=== PATIENT | male | born 1990 | race Caucasian/White ===

== ENCOUNTER 2017-06-12 17:15 | Emergency (ER) | payer OTHER ==
[~2017-06-12] VITALS: Ht 172.7 cm; Wt 94.0 kg
[2017-06-12 17:17] VITALS: TEMP 37.3; Ht 172.7 cm; Wt 94.0 kg
[2017-06-12] MEDS ORDERED: SODIUM CHLORIDE 0.9% 1000ML 1,000 ML IV STA ×2 (17:29→17:30)
[2017-06-12] MEDS ORDERED: CLOZ100T PO (17:37)
[2017-06-12] MEDS ORDERED: VENL-273 PO (17:42)
[2017-06-12] MEDS ORDERED: NALT50TA5 PO (17:42)
[2017-06-12 18:04] LABS: BASO % 0.1 %; BASO ABS # 0.01 K/uL (0-0.2); COMPLETE YES; EOS % 0.9 %; IG% 0.1 %; LYMPH % 30.1 %; MEAN CELL VOLUME 87.4 fL (80-100); MEAN CORPUSCULAR HEMOGLOBIN 30.5 pg (25-34); MEAN CORPUSCULAR HGB CONC 34.9 g/dl (32-36); MEAN PLATELET VOLUME 10.1 fL (7.4-10.4); MONO % 4.7 %; NEUT % 64.1 %; PLATELET COUNT 204 K/uL (130-400); RED BLOOD COUNT 4.69 M/uL (4.7-6.1); WHITE BLOOD COUNT 7.63 K/uL (4.8-10.8)
[2017-06-12 18:35] LABS: ALT/SGPT 23 U/L (12-78); AST/SGOT 24 U/L (15-37); BLOOD UREA NITROGEN 10 mg/dl (7-18); CALCIUM 8.9 mg/dl (8.5-10.1); CARBON DIOXIDE 27 mmol/L (21-32); CHLORIDE 109 mmol/L (98-107); CREATININE 0.77 mg/dl (0.60-1.40); GLUCOSE 92 mg/dl (70-99); POTASSIUM 3.6 mmol/L (3.5-5.1); SODIUM 141 mmol/L (136-145)
[2017-06-12 18:38] LABS: ALKALINE PHOSPHATASE 98 U/L (45-117)
[2017-06-12] MEDS ORDERED: DiphenhydrAMINE HCL 50 MG/ML VIAL IV STA (18:46)
--- NOTE | 2017-06-12 19:03 | DIAGNOSTIC IMAGING REPORT ---
HEAD CT NONCONTRAST CT DOSE: 537.48 mGy.cm HISTORY: ? Seizures TECHNIQUE: Multiaxial CT images of the head were performed without the use of intravenous contrast. Automated exposure control was utilized for this study. A dose lowering technique was utilized adhering to the principles of ALARA. Comparison: None. Findings: The paranasal sinuses and mastoid air cells are clear. The calvarium and skull base are intact. The ventricles and sulci are within normal limits. There is no mass, hematoma, midline shift, or acute infarct. Impression: No acute intracranial abnormality. If this is the patient's first reported seizure then consider follow-up nonemergent brain MRI for further evaluation. Electronically signed by: Judd Moreno M.D. 06/12/2017 7:02 PM Dictated Date/Time: 06/12/2017 6:59 PM
[2017-06-12 19:06] LABS: URINE APPEARANCE CLOUDY (CLEAR); URINE BILIRUBIN NEG (NEG); URINE COLOR YELLOW; URINE EPITHELIAL CELL AUTO 0-5 /lpf (0-5); URINE NITRITE NEG (NEG); URINE PH 7.5 (4.5-7.5); URINE SPECIFIC GRAVITY 1.012 (1.000-1.030); UROBILINOGEN NEG (NEG); ZZUR CULT IF INDIC CLEAN CATCH NO
[2017-06-12 19:10] LABS: MANUAL MICROSCOPIC REQUIRED? NO; REVIEW REQ? NO
[2017-06-12 19:55] VITALS: BP 142/87; PULSE 82; O2SAT 98
--- NOTE | 2017-06-12 22:11 | EMERGENCY ROOM VISIT NOTE ---
History Report prepared by Itz: Magdiel Dow Under the Supervision of: Dr. Sriram Avery D.O. First contact with patient: 17:19 Chief Complaint: ALLERGIC REACTION Stated Complaint: MEDICATION REACTION History of Present Illness The patient is a 27 year old male who presents to the Emergency Room with complaints of intermittent for the past week. The mother notes that the patient was put on Clozaril in February for his schizophrenia. The mother notes that the patient has intermittent of episodes that last around 30 seconds where he tenses up, his hands start twitching, his head twitches to one side, he gets bright red, he gets sweaty, and he grunts. The patient notes that he does not notice this. The mother states that she has seen it 10-12 times today, and they usually only last for a few seconds until his mother talks to him and he snaps out of it. She states that the patient is not confused when he goes back to baseline, though he is a little bit delayed. The patient states that he has a rash on his neck, thought he notes that it could be from shaving. The mother additionally states that the patient has a tremor. He is additionally taking Effexor and naltrexone, and he used to be on Seroquel and Trileptal Source of History: patient, parent Onset: a week ago Position: other (global) Quality: other (allergic reaction) Timing: intermittent Note: Associated symptoms: he tenses up, his hands start twitching, his head twitches to one side, he gets bright red, he gets sweaty, and he grunts Review of Systems See HPI for pertinent positives & negatives. A total of 10 systems reviewed and were otherwise negative. Past Medical & Surgical Medical Problems: (1) Schizophrenia Social History Marital Status: single Housing Status: lives with family Occupation Status: unemployed Current/Historical Medications Scheduled Clozapine (Clozaril), 400 MG PO HS Naltrexone Hcl (Naltrexone Hcl), 5 MG PO DAILY Venlafaxine Hcl (Venlafaxine Hcl Er), 75 MG PO DAILY Allergies Coded Allergies: No Known Allergies (Unverified , 06/12/17) Physical Exam Vital Signs Date Time Temp Pulse Resp B/P (MAP) Pulse Ox O2 Delivery O2 Flow Rate FiO2 06/12/17 19:55 82 142/87 98 06/12/17 19:04 85 141/90 98 Room Air 06/12/17 17:17 37.3 124 20 141/80 95 Room Air Physical Exam GENERAL: Sitting up in bed, alert, well appearing, well nourished, no distress, non-toxic EYE EXAM: normal conjunctiva. PERRL and EOM's intact. OROPHARYNX: no exudate, no erythema, lips, buccal mucosa, and tongue normal and mucous membranes are moist NECK: supple, no nuchal rigidity, no adenopathy, non-tender LUNGS: Clear to auscultation. Normal chest wall mechanics HEART: no murmurs, S1 normal and S2 normal ABDOMEN: abdomen soft, non-tender, normo-active bowel sounds, no masses, no rebound or guarding. BACK: Back is symmetrical on inspection and there is no deformity, no midline tenderness, no CVA tenderness. SKIN: no rashes and no bruising UPPER EXTREMITIES: upper extremities are grossly normal. LOWER EXTREMITIES: No clonus. Ambulating without difficulty. Patellar reflexes are 1/4 bilaterally. No pitting edema. NEURO EXAM: Normal sensorium, cranial nerves II-XII intact, normal speech, no weakness of arms, no weakness of legs. No drift. Finger to nose intact. Sensation intact. No clonus. Ambulating without difficulty. Medical Decision & Procedures ER Provider Diagnostic Interpretation: Radiology results as stated below per my review and the radiologist's interpretation: HEAD CT NONCONTRAST CT DOSE: 537.48 mGy.cm HISTORY: ? Seizures TECHNIQUE: Multiaxial CT images of the head were performed without the use of intravenous contrast. Automated exposure control was utilized for this study. A dose lowering technique was utilized adhering to the principles of ALARA. Comparison: None. Findings: The paranasal sinuses and mastoid air cells are clear. The calvarium and skull base are intact. The ventricles and sulci are within normal limits. There is no mass, hematoma, midline shift, or acute infarct. Impression: No acute intracranial abnormality. If this is the patient's first reported seizure then consider follow-up nonemergent brain MRI for further evaluation. Electronically signed by: Judd Moreno M.D. 06/12/2017 7:02 PM Dictated Date/Time: 06/12/2017 6:59 PM Laboratory Results 06/12/17 17:40 Red Blood Count 4.69, Mean Corpuscular Volume 87.4, Mean Corpuscular Hemoglobin 30.5, Mean Corpuscular Hemoglobin Concent 34.9, Mean Platelet Volume 10.1, Neutrophils (%) (Auto) 64.1, Lymphocytes (%) (Auto) 30.1, Monocytes (%) (Auto) 4.7, Eosinophils (%) (Auto) 0.9, Basophils (%) (Auto) 0.1, Neutrophils # (Auto) 4.88, Lymphocytes # (Auto) 2.30, Monocytes # (Auto) 0.36, Eosinophils # (Auto) 0.07, Basophils # (Auto) 0.01 06/12/17 17:40 Test 06/12/17 17:40 06/12/17 18:50 White Blood Count 7.63 K/uL (4.8-10.8) Red Blood Count 4.69 M/uL (4.7-6.1) Hemoglobin 14.3 g/dL (14.0-18.0) Hematocrit 41.0 % (42-52) Mean Corpuscular Volume 87.4 fL (80-100) Mean Corpuscular Hemoglobin 30.5 pg (25-34) Mean Corpuscular Hemoglobin Concent 34.9 g/dl (32-36) Platelet Count 204 K/uL (130-400) Mean Platelet Volume 10.1 fL (7.4-10.4) Neutrophils (%) (Auto) 64.1 % Lymphocytes (%) (Auto) 30.1 % Monocytes (%) (Auto) 4.7 % Eosinophils (%) (Auto) 0.9 % Basophils (%) (Auto) 0.1 % Neutrophils # (Auto) 4.88 K/uL (1.4-6.5) Lymphocytes # (Auto) 2.30 K/uL (1.2-3.4) Monocytes # (Auto) 0.36 K/uL (0.11-0.59) Eosinophils # (Auto) 0.07 K/uL (0-0.5) Basophils # (Auto) 0.01 K/uL (0-0.2) RDW Standard Deviation 42.9 fL (36.4-46.3) RDW Coefficient of Variation 13.5 % (11.5-14.5) Immature Granulocyte % (Auto) 0.1 % Immature Granulocyte # (Auto) 0.01 K/uL (0.00-0.02) Anion Gap 5.0 mmol/L (3-11) Est Creatinine Clear Calc Drug Dose 163.1 ml/min Estimated GFR () 146.2 Estimated GFR (Non- 126.1 BUN/Creatinine Ratio 13.0 (10-20) Calcium Level 8.9 mg/dl (8.5-10.1) Total Bilirubin 0.4 mg/dl (0.2-1) Direct Bilirubin < 0.1 mg/dl (0-0.2) Aspartate Amino Transf (AST/SGOT) 24 U/L (15-37) Alanine Aminotransferase (ALT/SGPT) 23 U/L (12-78) Alkaline Phosphatase 98 U/L (45-117) Total Creatine Kinase 316 U/L (39-308) Total Protein 7.0 gm/dl (6.4-8.2) Albumin 3.7 gm/dl (3.4-5.0) Lipase 107 U/L (73-393) Urine Color YELLOW Urine Appearance CLOUDY (CLEAR) Urine pH 7.5 (4.5-7.5) Urine Specific [place] 1.012 (1.000-1.030) Urine Protein NEG (NEG) Urine Glucose (UA) NEG (NEG) Urine Ketones NEG (NEG) Urine Occult Blood NEG (NEG) Urine Nitrite NEG (NEG) Urine Bilirubin NEG (NEG) Urine Urobilinogen NEG (NEG) Urine Leukocyte Esterase NEG (NEG) Urine WBC (Auto) 0 /hpf (0-5) Urine RBC (Auto) 0-4 /hpf (0-4) Urine Hyaline Casts (Auto) 0 /lpf (0-5) Urine Epithelial Cells (Auto) 0-5 /lpf (0-5) Urine Bacteria (Auto) NEG (NEG) Laboratory results per my review. Medications Administered Medications (Trade) Dose Ordered Sig/Kellen Route Start Time Stop Time Status Last Admin Dose Admin Sodium Chloride 1,000 ml @ 999 mls/hr Q1H1M STAT IV 06/12/17 17:29 06/12/17 18:29 DC 06/12/17 17:29 999 MLS/HR Sodium Chloride 1,000 ml @ 999 mls/hr Q1H1M STAT IV 06/12/17 17:30 06/12/17 18:30 DC 06/12/17 17:30 999 MLS/HR Diphenhydramine HCl (Benadryl Inj) 50 mg NOW STAT IV 06/12/17 18:46 06/12/17 18:47 DC 06/12/17 19:00 50 MG ED Course ED COURSE: Vital signs were reviewed and showed tachycardia and hypertension The patients medical record was reviewed The above diagnostic studies were performed and reviewed. ED treatments and interventions as stated above. 1719: The patient was evaluated in room A3. A complete history and physical examination was performed. 1729: Sodium Chloride 1000 ml @ 999 mls/hr IV 1730: Sodium Chloride 1000 ml @ 999 mls/hr IV 1846: Benadryl 50mg IV 1914: I reevaluated the patient and had a long conversation with the patient and his mother, and I updated them on the results 1925: I discussed the patient's case with Dr. Christos Mendoza, and she recommends decreasing the Clozaril own to 200mg 1947: Upon reevaluation, the patient is doing well. I advised that the patient ill not be able to drive, and he states that he does not drive. He has an appointment with a psychologist in three days.I discussed my findings with the patient and he understands and agrees with the treatment plan. Based on the patients age, coexisting illnesses, exam and lab findings the decision to treat as an outpatient was made. The patient remained stable while under my care. The patient appeared well at the time of discharge. Medical Decision Differential diagnosis: Etiologies such as allergic reaction, anaphylaxis, urticaria, Geiger-Fabrizio syndrome, toxic epidermal necrolysis, erythema multiforme, cellulitis, as well as others were entertained. Patient is a 27-year-old male who presents to ER with a history of schizophrenia for twitching spells. Mom is a nurse and appears to be describing dystonic reaction. She notes that he gets these spells where he becomes rigid in the face or upper extremities and only lasts for a couple seconds. When she talks to him through this he is slightly delayed but able to have a conversation. He is nonfocal. I do not believe that this is an absence seizure as he communicates throughout this. Questions this is possibly dystonic reaction secondary to the positive pain which started back in February. Patient was given IV Benadryl. CBC all BMP, LFTs, bilirubin and UA was negative. CT head was negative and was performed on the off chance this was absent seizures. I discussed with psychiatry for stopping versed decreasing dose of Clozaril. They recommended decreasing the dose to 200 mg which is cutting in half. I recommended that he should continue 50 mg Benadryl 3 times a day and follow up with psychiatry tomorrow. He does have an appointment on Wednesday. Patient is otherwise completely neurologically intact. No other complaints. He is discharged follow-up with psychiatry. He also does not drive. Discussed with Pt concerning signs and symptoms to watch out for. Pt was instructed to follow up with their PCP and discussed with the patient their option to return to the ED at anytime for persistent or worsening symptoms. The appropriate anticipatory guidance and out-patient management, including indications for return to the emergency department, were explained at length to the patient and understood. Medication Reconcilliation Current Medication List: was personally reviewed by me Blood Pressure Screening Patient's blood pressure: Elevated blood pressure Consults Time Called: 1920 Consulting Physician: Dr. Christos Personologist Returned Call: 1925 I discussed the patient's case with Dr. Christos Mendoza, and she recommends decreasing the Clozaril own to 200mg Impression Primary Impression: Dystonic drug reaction Scribe Attestation The scribe's documentation has been prepared under my direction and personally reviewed by me in its entirety. I confirm that the note above accurately reflects all work, treatment, procedures, and medical decision making performed by me. Departure Information Dispostion Home / Self-Care Referrals No Doctor, Assigned (PCP) Forms HOME CARE DOCUMENTATION FORM, IMPORTANT VISIT INFORMATION Patient Instructions ED Drug React Dystonic Adverse, My [facility] Additional Instructions Please follow up with your primary care doctor with in the next 24 hours. Any worsening of your symptoms, please return to the ED immediately. This includes any fevers greater than 100.4, worsening pain, chest pain, shortness breath, persistent nausea, vomiting, unable to eat or drink, or any other concerning signs or symptoms from your standpoint. Please take Benadryl 50 mg every 6-8 hours until you see her psychiatrist. Please decreased the dose of Clozaril to 200 mg at night. Please follow up with your psychiatrist in touch patient with them tomorrow. Please try to move her appointment up to Wednesday from Wednesday. If symptoms continue he will need to follow-up with PCP and return to ER if anything worsens.
== END 2017-06-12 19:55 | disposition home or self-care (01) ==
LOC: C.EDB 17:17 → C.EDA 19:55
DX: G24.02 Drug induced acute dystonia (principal); T43.595A Adverse effect of other antipsychotics and neuroleptics, initial encounter; F20.9 Schizophrenia, unspecified